=== PATIENT | female | born 1965 | race Caucasian/White ===

== ENCOUNTER 2018-07-26 14:13 | Emergency (ER) | payer MEDICAID, OTHER ==
[2018-07-26 15:23] VITALS: BP 154/77
--- NOTE | 2018-07-26 15:49 | UC ---
General HPI - HPI Summary HPI Summary: involved in horseplay with daughter who landed on pt's L ankle 10 days ago. c/o ongoing pain and swelling despite RICE and wrap. - History of Current Complaint Chief Complaint: UCLowerExtremity Stated Complaint: LEFT ANKLE COMPLAINT Time Seen by Provider: 07/26/18 15:34 Hx Obtained From: Patient Pain Intensity: 5 Associated Signs & Symptoms: Positive: Edema. Negative: Fever - Allergy/Home Medications Allergies/Adverse Reactions: Allergies Allergy/AdvReac Type Severity Reaction Status Date / Time Adhesive Tape Allergy Blisters Verified 07/26/18 15:23 bacitracin Allergy Rash Verified 07/26/18 15:23 morphine Allergy Altered Verified 07/26/18 15:23 Mental Status neomycin Allergy Rash Verified 07/26/18 15:23 [From Triple Antibiotic] polymyxin B Allergy Rash Verified 07/26/18 15:23 [From Triple Antibiotic] Home Medications: Home Medications Amlodipine Besylate [Amlodipine 2.5 mg tab] 2.5 mg PO DAILY 07/26/18 [History Confirmed 07/26/18] DULoxetine DR CAP* [Cymbalta CAP*] 20 mg PO BID 07/26/18 [History Confirmed 03/05] Ondansetron HCl [Zofran 4 MG TAB] 4 mg PO 07/26/18 [History] Pregabalin CAP(*) [Lyrica CAP(*)] 25 mg PO BID 07/26/18 [History Confirmed 07/26] PMH/Surg Hx/FS Hx/Imm Hx - Additional Past Medical History Additional PMH: neuropathy. spinal stenosis. arthritis. chronic pain. Psychological History: Depression - Surgical History Surgical History: Yes Surgery Procedure, Year, and Place: back surgery with hardware 05/30. neck surgery with hardware 07/31. right THR 09/2011. right femur fracture with nicky placement 09/2008. removal right femur rod09/2010. right 5th metatarsal pin. bilateral breast reduction - Social History Alcohol Use: Weekly Alcohol Amount: 2 per week Substance Use Type: None Substance Use Comment - Amount & Last Used: hydrocodone and occasional marijuana use Smoking Status (MU): Current Every Day Smoker Type: Cigarettes Amount Used/How Often: 3/4-1 PPD Have You Smoked in the Last Year: Yes Household Exposure Type: Cigarettes Review of Systems All Other Systems Reviewed And Are Negative: Yes Constitutional: Positive: Negative Skin: Positive: Negative Eyes: Positive: Negative ENT: Positive: Negative Respiratory: Positive: Negative Cardiovascular: Positive: Negative Gastrointestinal: Positive: Negative Genitourinary: Positive: Negative Neurovascular: Positive: Negative Neurological: Positive: Negative Psychological: Positive: Negative Physical Exam Triage Information Reviewed: Yes Appearance: Well-Appearing Vital Signs: Initial Vital Signs Temp 98.6 F 07/26/18 15:17 Pulse 100 07/26/18 15:17 Resp 18 07/26/18 15:17 BP 154/77 07/26/18 15:17 Pulse Ox 98 07/26/18 15:17 Vital Signs Reviewed: Yes Eyes: Positive: Conjunctiva Clear ENT: Positive: Normal ENT inspection Neck: Positive: Supple Respiratory: Positive: Lungs clear Cardiovascular: Positive: RRR Abdomen Description: Positive: Nontender Bowel Sounds: Positive: Present Musculoskeletal: Positive: Other: - LLE: hip, knee, foot with no deformity or tenderness. Slight swelling of ankle plus tender over medial and lateral ankle. ROM is intact. Foot has gross s/v/m function. Neurological: Positive: Alert Psychological: Positive: Age Appropriate Behavior Skin Exam: Normal Diagnostics - Radiology No standard instances Radiology Interpretation Completed By: Radiologist - STS NO FX l ANKLE Course/Dx - Course Course Of Treatment: ankle pain x 10 days despite cindy/RICE - Differential Dx - Multi-Symptom Differential Diagnoses: Other - ankle fx, sprain, strain. doubt dislocation. - Diagnoses Provider Diagnosis: Left ankle sprain Discharge - Sign-Out/Discharge Documenting (check all that apply): Patient Departure All imaging exams completed and their final reports reviewed: Yes - Discharge Plan Condition: Stable Disposition: HOME Patient Education Materials: Ankle Sprain (ED) Referrals: Jude Cordero MD [Medical Doctor] - As Soon As Possible Additional Instructions: USE BOOT UNTIL CLEARED. - Billing Disposition and Condition Condition: STABLE Disposition: Home
== END 2018-07-26 16:21 | disposition home or self-care (01) ==
LOC: UCCORT 14:13
DX: S93.402A Sprain of unspecified ligament of left ankle, initial encounter (principal); F17.210 Nicotine dependence, cigarettes, uncomplicated; Z91.09 Other allergy status, other than to drugs and biological substances; Z88.1 Allergy status to other antibiotic agents; Z88.5 Allergy status to narcotic agent; V80.010A Animal-rider injured by fall from or being thrown from horse in noncollision accident, initial encounter; Y93.83 Activity, rough housing and horseplay; Y92.9 Unspecified place or not applicable
CPT/HCPCS: 99213; G0463